=== PATIENT | female | born 1970 | race Caucasian/White ===

== ENCOUNTER 2017-12-17 07:49 | Observation (INO) | payer OTHER ==
[2017-12-17] MEDS: SOD CHLORIDE 0.9% 1,000 ML IV (09:00)
[2017-12-17] MEDS: CEFAZOLIN 2 GM/50 ML (PMX) 50 ML IVPB (09:00)
[2017-12-17] MEDS ORDERED: ISOSULFAN BLUE 1% 5 ML INJ SC (10:22)
[2017-12-17] MEDS ORDERED: DIPHENHYDRAMINE 50 MG INJ IV (10:30)
[2017-12-17] MEDS ORDERED: ALBUTEROL 0.083% (NEB) 2.5 MG/3 ML AMP HHN (10:30)
[2017-12-17] MEDS ORDERED: FENTAnyl 50 MCG/ML VIAL IV ×3 (10:30)
[2017-12-17] MEDS ORDERED: hydrALAzine 20 MG INJ IV (10:30)
[2017-12-17] MEDS ORDERED: EPHEDrine SULFATE 50 MG/5 ML SYG IV (10:30)
[2017-12-17] MEDS ORDERED: IPRATROPIUM (NEB) 0.5 MG/2.5 ML AMP HHN (10:30)
[2017-12-17] MEDS ORDERED: LABETALOL HCL 20MG INJ IV (10:30)
[2017-12-17] MEDS ORDERED: ONDANSETRON 4 MG INJ IV ×2 (10:30→12:00)
[2017-12-17] MEDS ORDERED: MEPERIDINE 25 MG INJ IV (10:30)
[2017-12-17] MEDS ORDERED: OXYCODONE/ACETAMINOPHEN (5/325) TAB PO ×2 (10:30)
[2017-12-17] MEDS ORDERED: HYDROmorphONE 1 MG/5 ML IV SYRINGE IV ×3 (10:30)
[2017-12-17] MEDS ORDERED: TRIMETHOBENZAMIDE 100 MG/ML VIAL IM (10:30)
[2017-12-17] MEDS ORDERED: MIDAZOLAM 1 MG/ML 2 ML INJ IV (10:30)
[2017-12-17] MEDS ORDERED: ROCURONIUM 50 MG INJ (10:44)
[2017-12-17] MEDS ORDERED: CEFAZOLIN 1 GM INJ (10:44)
[2017-12-17] MEDS ORDERED: NEOSTIGMINE 3 MG/3 ML SYRINGE (10:44)
[2017-12-17] MEDS ORDERED: PROPOFOL 20 ML (10:44)
[2017-12-17] MEDS ORDERED: GLYCOPYRROLATE 0.4 MG INJ (10:44)
[2017-12-17] MEDS ORDERED: DEXAMETHASONE 4 MG/ML 1 ML INJ (10:45)
[2017-12-17] MEDS ORDERED: MIDAZOLAM 1 MG/ML 2 ML INJ (10:45)
[2017-12-17] MEDS ORDERED: ONDANSETRON 4 MG INJ (10:45)
[2017-12-17] MEDS ORDERED: FENTAnyl 50 MCG/ML VIAL (10:45)
[2017-12-17] MEDS ORDERED: METOCLOPRAMIDE 10 MG INJ (11:58)
[2017-12-17] MEDS ORDERED: ACETAMINOPHEN 1000MG/100ML IV 100 ML IVPB (12:00)
[2017-12-17] MEDS ORDERED: morphine 2 MG INJ IV (12:00)
[2017-12-17] MEDS: D5W-0.45 NACL + KCL 20 MEQ 1,000 ML IV ×2 (17:08→19:24)
[2017-12-18] MEDS: D5W-0.45 NACL + KCL 20 MEQ 1,000 ML IV ×2 (01:17→09:37)
[2017-12-18 06:21] LABS: ADD MAN DIFF? NO
[2017-12-18 06:34] LABS: WHITE BLOOD COUNT 9.5 10^3/ul (4.8-10.8)
[2017-12-18 06:34] LABS: BASOPHILS % 0.1 % (0.0-2.0); HEMATOCRIT 35.8 % (37.0-47.0); HEMOGLOBIN 12.3 g/dl (12.0-16.0); LYMPHOCYTES # 1.9 10^3/ul (0.8-2.9); LYMPHOCYTES % 19.8 % (15.0-51.0); MEAN CORPUSCULAR HEMOGLOBIN 31.9 pg (29.0-33.0); MEAN CORPUSCULAR HGB CONC 34.4 g/dl (32.0-37.0); MEAN CORPUSCULAR VOLUME 92.7 fl (82.0-101.0); MEAN PLATELET VOLUME 9.4 fl (7.4-10.4); MONOCYTE # 0.5 10^3/ul (0.3-0.9); MONOCYTES % 4.7 % (0.0-11.0); NEUTROPHIL # 7.1 10^3/ul (1.6-7.5); PLATELET COUNT 258 10^3/UL (140-415); RED BLOOD COUNT 3.86 10^6/ul (4.20-5.40); RED CELL DISTRIBUTION WIDTH 12.5 % (11.5-14.5)
[2017-12-18 07:06] LABS: ANION GAP 13 (8-16); BLOOD UREA NITROGEN 8 mg/dl (7-20); CALCIUM 8.6 mg/dl (8.4-10.2); CARBON DIOXIDE 23 mmol/L (21-31); CHLORIDE 109 mmol/L (97-110); CREATININE 0.59 mg/dl (0.44-1.00); GLUCOSE 138 mg/dl (70-220); POTASSIUM 3.8 mmol/L (3.5-5.1); SODIUM 141 mmol/L (135-144)
[2017-12-18] MEDS: HYDROCODONE/APAP (5/325) TAB PO (09:36)
[2017-12-18] MEDS ORDERED: morphine LIQ (10 MG/5 ML) CUP PO (15:00)
== END 2017-12-18 17:40 | disposition home or self-care (01) ==
LOC: SDS 07:49 → REC 12:39 → MS2 16:32
DX: C50.911 Malignant neoplasm of unspecified site of right female breast (principal); C77.3 Secondary and unspecified malignant neoplasm of axilla and upper limb lymph nodes
CPT/HCPCS: 19301; 80048; 84703; 85025; 99217